=== PATIENT | female | born 1950 | race Caucasian/White ===

== ENCOUNTER 2016-11-19 11:00 | Outpatient (RCR) | payer OTHER | END 2016-12-09 | disposition home or self-care (01) | LOC: PTY 11:00 | DX: M72.2 Plantar fascial fibromatosis (principal); M54.5 Low back pain; Z96.611 Presence of right artificial shoulder joint ==

== ENCOUNTER 2016-12-30 12:55 | Outpatient (RCR) | payer OTHER | END 2017-01-06 | disposition home or self-care (01) | LOC: PTY 12:55 | DX: M72.2 Plantar fascial fibromatosis (principal); M54.5 Low back pain; Z96.611 Presence of right artificial shoulder joint ==